=== PATIENT | female | born 1990 | race Hispanic/Latino ===

== ENCOUNTER 2018-12-01 14:13 | Emergency (ER) | payer MEDICAID | END 2018-12-01 14:48 | disposition home or self-care (01) | LOC: EDH 14:13 | DX: S39.012A Strain of muscle, fascia and tendon of lower back, initial encounter (principal); V49.49XA Driver injured in collision with other motor vehicles in traffic accident, initial encounter; Y93.89 Activity, other specified; Y92.410 Unspecified street and highway as the place of occurrence of the external cause; Y99.8 Other external cause status ==

== ENCOUNTER 2022-11-05 17:13 | Inpatient (IN) | payer MEDICAID, OTHER ==
[~2022-11-05] VITALS: Ht 160 cm; Wt 53.8 kg
[2022-11-05 18:29] LABS: APPEARANCE,URINE CLEAR (CLEAR); BILIRUBIN,URINE NEGATIVE (NEGATIVE); COLOR,URINE LIGHT-YELLOW (YELLOW); GLUCOSE, URINE (UA) NEGATIVE (NEGATIVE); KETONES,URINE NEGATIVE (NEGATIVE); LEUKOCYTE ESTERASE ,URINE NEGATIVE Leu/uL (NEGATIVE); NITRATE,URINE NEGATIVE (NEGATIVE); OCCULT BLOOD,URINE SMALL (NEGATIVE); PH,URINE 7.5 (5.0-8.0); PROTEIN,URINE 10 mg/dL (NEGATIVE); UROBILINOGEN,URINE 0.2 mg/dL (0.2-1.0)
[2022-11-05 18:30] LABS: ADD UA MICROSCOPIC YES
[2022-11-05] MEDS ORDERED: ACETAMINOPHEN 325 MG TAB PO ONE (18:30)
[2022-11-05 18:31] LABS: MUCUS,URINE RARE LPF (None Seen); RBC,URINE 26-50 /HPF (0-1); SQUAMOUS EPITHELIAL CELL,UR RARE /HPF (0-2)
[2022-11-05 18:32] LABS: HCG,QUALITATIVE URINE NEGATIVE (NEGATIVE)
[2022-11-05 18:53] LABS: BASOPHILS # (AUTO) 0.03 K/uL (0.00-0.20); BASOPHILS % (AUTO) 0.3 % (0.0-5.0); EOSINOPHILS # (AUTO) 0.01 K/uL (0.00-0.70); EOSINOPHILS % (AUTO) 0.1 % (0.0-8.0); HEMATOCRIT 37.7 % (36-48); IMMATURE GRANULOCYTE ABSOLUTE 0.04 K/uL (0-1); LYMPHOCYTES # (AUTO) 0.6 K/uL (1.0-4.8); LYMPHOCYTES % (AUTO) 5.5 % (21.0-51.0); MEAN CORPUSCULAR HEMOGLOBIN 32.7 pg (27.0-33.0); MEAN CORPUSCULAR HGB CONC 34.7 g/dL (32.0-36.0); MONOCYTES # (AUTO) 0.6 K/uL (0.1-1.0); MONOCYTES % (AUTO) 5.5 % (3.0-13.0); NEUTROPHILS # (AUTO) 9.7 K/uL (1.8-7.7); NEUTROPHILS % (AUTO) 88.2 % (40.0-77.0); PLATELET COUNT (AUTO) 265 K/uL (130-400); RED BLOOD CELL COUNT(AUTO) 4.01 MIL/uL (4.00-5.50); RED CELL DISTRIBUTION WIDTH 11.9 % (11.0-15.5); WHITE BLOOD COUNT (AUTO) 10.9 K/uL (4.8-10.8)
[2022-11-05] MEDS ORDERED: KETOROLAC 30MG VIAL (30MG/ML) IVP ONE (19:00)
[2022-11-05] MEDS ORDERED: 0.9%NACL 1000ML 1,000 ML IV ONE (19:00)
[2022-11-05] MEDS ORDERED: ONDANSETRON 4MG INJ IVP ONE (19:00)
[2022-11-05 19:03] LABS: CREATININE 0.9 mg/dL (0.5-1.5); POTASSIUM 3.4 mmol/L (3.5-5.1)
[2022-11-05 19:08] LABS: ALBUMIN 3.8 g/dL (3.5-5.0); BILIRUBIN,TOTAL 0.9 mg/dL (0.2-1.0); TOTAL PROTEIN, SERUM 8.4 g/dL (6.0-8.3)
[2022-11-05] MEDS ORDERED: ACETAMINOPHEN 500 MG TABLET ONE (19:36)
[2022-11-05] MEDS ORDERED: CEFTRIAXONE 1G VIAL IVPB ONE (20:00)
[2022-11-05] MEDS ORDERED: POTASSIUM CHLORIDE 10MEQ SR TAB PO ONE (20:00)
[2022-11-05] MEDS ORDERED: ACETAMINOPHEN 500 MG TABLET PO ONE (20:00)
[2022-11-05] MEDS ORDERED: 0.9%NACL 1000ML 1,572 ML IV ONE (20:30)
[2022-11-05 20:53] LABS: RAPID GROUP A STREP negative (NEGATIVE)
[2022-11-05 20:59] LABS: SARS-CoV-2, RNA, NAAT NEGATIVE SARS CoV-2 (NEGATIVE)
[2022-11-05 21:00] LABS: INFLUENZA TYPE A Negative For Type A (NEGATIVE); INFLUENZA TYPE B Negative For Type B (NEGATIVE)
[2022-11-05] MEDS ORDERED: KCL 20 MEQ ERTAB PO PRN (21:00)
[2022-11-05] MEDS ORDERED: POTASSIUM CHLORIDE 10% ELIXIR 20 MEQ/15 ML UDCUP PO PRN (21:00)
[2022-11-05] MEDS ORDERED: MAGNESIUM 2GM PREMIX 50ML 50 ML IV PRN (21:00)
[2022-11-05] MEDS ORDERED: LACTATED RINGERS 1000ML 1,572 ML IV ONE (21:00)
[2022-11-05] MEDS ORDERED: POTASSIUM CHLORIDE 20MEQ/100ML 100 ML IV PRN (21:00)
[2022-11-05] MEDS ORDERED: ONDANSETRON 4MG INJ IV PRN (21:00)
[2022-11-05] MEDS ORDERED: MORPHINE 4 MG SYG IV PRN (21:00)
[2022-11-05] MEDS ORDERED: ACETAMINOPHEN 325 MG TAB PO PRN (21:00)
[2022-11-05] MEDS ORDERED: POTASSIUM BICARB/CIT AC 25 MEQ TABLET.EFF PO ONE (21:30)
[2022-11-05] MEDS ORDERED: IBUPROFEN 400 MG TABLET PO ONE (21:30)
[2022-11-05] MEDS: FAMOTIDINE 20MG TAB PO SCH (21:38)
[2022-11-05] MEDS: ZOSYN 3.375GM+NS 50ML 50 ML IVPB SCH (21:38)
[2022-11-05 23:10] VITALS: BP 121/69; PULSE 99; RESP 18
[2022-11-05] MEDS: MORPHINE 2 MG SYG IV PRN (23:36)
[2022-11-06] VITALS (8 sets, daily range): BP systolic 97–131; BP diastolic 62–76; PULSE 70–102; RESP 16–22; O2SAT 0
[2022-11-06] MEDS: ZOSYN 3.375GM+NS 50ML 50 ML IVPB SCH ×2 (04:30→13:06)
[2022-11-06] MEDS: MORPHINE 2 MG SYG IV PRN ×2 (04:57→13:08)
[2022-11-06 05:34] LABS: BASOPHILS # (AUTO) 0.05 K/uL (0.00-0.20); BASOPHILS % (AUTO) 0.4 % (0.0-5.0); EOSINOPHILS # (AUTO) 0.12 K/uL (0.00-0.70); HEMATOCRIT 35.9 % (36-48); IMMATURE GRANULOCYTE ABSOLUTE 0.08 K/uL (0-1); LYMPHOCYTES # (AUTO) 1.8 K/uL (1.0-4.8); LYMPHOCYTES % (AUTO) 15.2 % (21.0-51.0); MEAN CORPUSCULAR HEMOGLOBIN 31.9 pg (27.0-33.0); MEAN CORPUSCULAR VOLUME 99.4 fL (79-99); MONOCYTES # (AUTO) 0.7 K/uL (0.1-1.0); MONOCYTES % (AUTO) 6.1 % (3.0-13.0); NEUTROPHILS # (AUTO) 9.1 K/uL (1.8-7.7); NEUTROPHILS % (AUTO) 76.6 % (40.0-77.0); PLATELET COUNT (AUTO) 215 K/uL (130-400); RED BLOOD CELL COUNT(AUTO) 3.61 MIL/uL (4.00-5.50); WHITE BLOOD COUNT (AUTO) 11.8 K/uL (4.8-10.8)
[2022-11-06 06:07] LABS: CREATININE 0.7 mg/dL (0.5-1.5); MAGNESIUM 1.8 mg/dL (1.80-2.40); PHOSPHORUS 3.1 mg/dL (2.5-4.9); POTASSIUM 3.8 mmol/L (3.5-5.1)
[2022-11-06] MEDS: FAMOTIDINE 20MG TAB PO SCH (07:59)
[2022-11-06] MEDS: ENOXAPARIN SODIUM 40 MG/0.4 ML SYRINGE SQ SCH (08:00)
[2022-11-06] MEDS: ACETAMINOPHEN 325 MG TAB PO PRN (08:06)
[2022-11-06] MEDS: DOXYCYCLINE 100MG+NS 250ML IV SCH (11:42)
[2022-11-06 13:23] LABS: RAPID PLASMA REAGIN NONREACTIVE (NONREACTIVE)
[2022-11-06 13:41] LABS: AMPHET/METH SCREEN,URINE NEGATIVE (NEGATIVE); BARBITURATE SCREEN, URINE NEGATIVE (NEGATIVE); BENZODIAZEPINES SCREEN,URINE NEGATIVE (NEGATIVE); CANNABINOID SCREEN,URINE NEGATIVE (NEGATIVE); COCAINE SCREEN,URINE POSITIVE (NEGATIVE); OPIATE SCREEN,URINE NEGATIVE (NEGATIVE); PHENCYCLIDINE SCREEN,URINE NEGATIVE (NEGATIVE)
[2022-11-06] MEDS ORDERED: IBUPROFEN 600 MG TABLET PO PRN (14:00)
[2022-11-06 23:36] LABS: HEPATITIS A IGM ANTIBODY Non-Reactive (Nonreactive); HEPATITIS B CORE IGM ANTIBODY Non-Reactive (Negative); HEPATITIS B SURFACE ANTIGEN Non-Reactive (Nonreactive); HEPATITIS C ANTIBODY Non-Reactive (Nonreactive)
[2022-11-07] VITALS (8 sets, daily range): BP systolic 90–125; BP diastolic 57–75; PULSE 63–96; RESP 16–22; TEMP 100; O2SAT 0
[2022-11-07] MEDS: FAMOTIDINE 20MG TAB PO SCH ×3 (03:11→20:36)
[2022-11-07] MEDS: ZOSYN 3.375GM+NS 50ML 50 ML IVPB SCH ×4 (03:11→20:36)
[2022-11-07] MEDS: DOXYCYCLINE 100MG+NS 250ML IV SCH ×2 (03:11→11:10)
[2022-11-07 05:01] LABS: BASOPHILS # (AUTO) 0.03 K/uL (0.00-0.20); BASOPHILS % (AUTO) 0.3 % (0.0-5.0); EOSINOPHILS # (AUTO) 0.13 K/uL (0.00-0.70); EOSINOPHILS % (AUTO) 1.3 % (0.0-8.0); HEMATOCRIT 31.4 % (36-48); IMMATURE GRANULOCYTE ABSOLUTE 0.03 K/uL (0-1); LYMPHOCYTES # (AUTO) 1.2 K/uL (1.0-4.8); LYMPHOCYTES % (AUTO) 11.7 % (21.0-51.0); MEAN CORPUSCULAR HEMOGLOBIN 32.3 pg (27.0-33.0); MEAN CORPUSCULAR HGB CONC 33.4 g/dL (32.0-36.0); MEAN CORPUSCULAR VOLUME 96.6 fL (79-99); MONOCYTES # (AUTO) 1.2 K/uL (0.1-1.0); MONOCYTES % (AUTO) 12.3 % (3.0-13.0); NEUTROPHILS # (AUTO) 7.3 K/uL (1.8-7.7); NEUTROPHILS % (AUTO) 74.1 % (40.0-77.0); PLATELET COUNT (AUTO) 198 K/uL (130-400); RED BLOOD CELL COUNT(AUTO) 3.25 MIL/uL (4.00-5.50); RED CELL DISTRIBUTION WIDTH 12.2 % (11.0-15.5); WHITE BLOOD COUNT (AUTO) 9.8 K/uL (4.8-10.8)
[2022-11-07 05:14] LABS: CREATININE 0.7 mg/dL (0.5-1.5); MAGNESIUM 1.5 mg/dL (1.80-2.40); PHOSPHORUS 2.5 mg/dL (2.5-4.9); POTASSIUM 3.8 mmol/L (3.5-5.1)
[2022-11-07] MEDS: ENOXAPARIN SODIUM 40 MG/0.4 ML SYRINGE SQ SCH (09:31)
[2022-11-07] MEDS: ACETAMINOPHEN 325 MG TAB PO PRN (18:43)
[2022-11-08 00:15] VITALS: BP_SYST 121; BP_SYST 125; BP_DIAS 70; BP_DIAS 74; PULSE 82; PULSE 89; RESP 18
[2022-11-08] MEDS: DOXYCYCLINE 100MG+NS 250ML IV SCH ×2 (01:14→10:31)
[2022-11-08 04:25] VITALS: BP 107/74; PULSE 66; RESP 18
[2022-11-08 05:10] LABS: BASOPHILS # (AUTO) 0.05 K/uL (0.00-0.20); BASOPHILS % (AUTO) 0.7 % (0.0-5.0); EOSINOPHILS # (AUTO) 0.37 K/uL (0.00-0.70); EOSINOPHILS % (AUTO) 5.4 % (0.0-8.0); HEMATOCRIT 31.8 % (36-48); IMMATURE GRANULOCYTE ABSOLUTE 0.03 K/uL (0-1); LYMPHOCYTES # (AUTO) 2.2 K/uL (1.0-4.8); LYMPHOCYTES % (AUTO) 31.9 % (21.0-51.0); MEAN CORPUSCULAR HEMOGLOBIN 31.8 pg (27.0-33.0); MEAN CORPUSCULAR HGB CONC 32.1 g/dL (32.0-36.0); MEAN CORPUSCULAR VOLUME 99.1 fL (79-99); MONOCYTES # (AUTO) 0.8 K/uL (0.1-1.0); MONOCYTES % (AUTO) 11.7 % (3.0-13.0); NEUTROPHILS # (AUTO) 3.4 K/uL (1.8-7.7); NEUTROPHILS % (AUTO) 49.9 % (40.0-77.0); PLATELET COUNT (AUTO) 201 K/uL (130-400); RED BLOOD CELL COUNT(AUTO) 3.21 MIL/uL (4.00-5.50); WHITE BLOOD COUNT (AUTO) 6.8 K/uL (4.8-10.8)
[2022-11-08 05:13] LABS: CREATININE 0.7 mg/dL (0.5-1.5); POTASSIUM 3.7 mmol/L (3.5-5.1)
[2022-11-08] MEDS: ZOSYN 3.375GM+NS 50ML 50 ML IVPB SCH ×2 (05:30→13:35)
[2022-11-08 08:00] VITALS: BP 109/75; PULSE 79; RESP 16
[2022-11-08 08:45] VITALS: O2SAT 0
[2022-11-08] MEDS: FAMOTIDINE 20MG TAB PO SCH (08:59)
[2022-11-08] MEDS: ENOXAPARIN SODIUM 40 MG/0.4 ML SYRINGE SQ SCH (08:59)
[2022-11-08] MEDS ORDERED: DOXY100C5 PO (10:41)
[2022-11-08 12:00] VITALS: BP 110/61; PULSE 70; RESP 16
== END 2022-11-08 15:40 | disposition home or self-care (01) | DRG 872 ==
LOC: EDH 17:13 → EDHIP 17:14 → 2DH 22:24
PROVIDERS: ADMIT Internal Medicine; ATTEND Internal Medicine
DX: A41.9 Sepsis, unspecified organism (principal); D53.9 Nutritional anemia, unspecified; E87.6 Hypokalemia; Z20.822 Contact with and (suspected) exposure to COVID-19; F14.10 Cocaine abuse, uncomplicated; Z98.82 Breast implant status
CPT/HCPCS: 36415; 71045; 74176; 76705; 76856; 80048; 80053; 80074; 80305; 81001; 81025; 82550; 83605; 83735; 84100; 84145; 84484; 85025; 86038; 86160; 86215; 86235; 86304; 86480; 86592; 86701; 86757; 87040; 87207; 87390; 87486; 87635; 87797; 87804; 87880; G0378; J1650; J1885; J2270; J2405; J2543; J3475; J3490; J7030